=== PATIENT | male | born 1975 | race Caucasian/White ===

== ENCOUNTER 2021-04-22 11:29 | Outpatient (CLI) | payer OTHER, SELFPAY ==
--- NOTE | 2021-04-22 | DI.RAD_ITS ---
Exam(s) XR RIBS RT W PA LAT CHEST EXAM: XR RIBS RT W PA LAT CHEST CLINICAL HISTORY: RT SIDED RIB PAIN, R07.81 TECHNIQUE: 2D digital imaging was performed. COMPARISON: No exams were available for comparison FINDINGS: . There are nonacute appearing rib fractures in the upper left rib cage. With respect of the right rib cage, there is cortical irregularity of the 8th rib which has the appearance of a healed fracture site. There are no fractures of the 12th rib (which is apparently set of tenderness). No fractures of the 10th and 11th ribs evident. No obvious rib fractures higher up. No rib lesion seen. No lung contusion or pneumothorax. There is no pleural effusion evident. Heart size is normal and there is no significant mediastinal widening. IMPRESSION: 1. No acute right rib fractures evident. Nonacute appearing fractures evident the left rib and 2nd r ibs.. 2. No acute lung nor pleural abnormality evident. No pneumothorax. DATA REPOSITORY: RADIATION DOSE DELIVERED:
== END 2021-04-22 11:49 ==
PROVIDERS: Visit Provider Physician Assistant Medical
DX: R07.81 Pleurodynia (principal)
CPT/HCPCS: 71046; 71100

== ENCOUNTER 2021-09-16 12:36 | Outpatient (REF) | payer SELFPAY ==
[2021-09-16 14:44] LABS: Abs Immature Grans 0.03 10^3/uL (0.0-0.06); Absolute Basophil Count 0.08 10^3/uL (0.0-0.2); Absolute Eosinophil Count 0.23 10^3/uL (0.0-0.7); Absolute Lymphocyte Count 1.48 10^3/uL (1.2-3.4); Absolute Monocyte Count 0.64 10^3/uL (0.1-0.8); Absolute Neutrophil Count 4.05 10^3/uL (1.2-6.7); Basophils % 1.2; Eosinophils % 3.5; HCT 49.7 % (40.0-50.0); HGB 17.1 g/dL (13.5-17.5); Immature Grans % 0.5; Lymphocytes % 22.7; MCH 36.7 pg (27.0-33.0); MCHC 34.4 % (32.0-36.0); MCV 106.7 fL (80-95); MPV 11.1 fL (8.0-11.0); Monocytes % 9.8; Neutrophils % 62.3; Nucleated RBC 0 %; Platelet Count 134 10^3/uL (130-400); RBC 4.66 10^6/uL (4.36-5.78); RDW-SD 51.8 fL; WBC 6.51 10^3/uL (4.4-10.8)
[2021-09-16 14:57] LABS: ALT 55 U/L (16-63); AST 49 U/L (15-37); Albumin 3.9 g/dL (3.4-5.0); Alkaline Phosphatase 76 U/L (46-116); Anion Gap 9.5 mmol/L (3-11); BUN 7 mg/dL (7-18); Bilirubin, Total 0.9 mg/dL (0.2-1.0); CO2 25.5 mmol/L (21.0-32.0); CREATININE 0.8 mg/dL (0.70-1.30); Calcium 9.1 mg/dL (8.5-10.1); Chloride 102 mmol/L (98-107); Glucose 108 mg/dL (74-106); Potassium 4.3 mmol/L (3.5-5.1); Sodium 137 mmol/L (136-145)
[2021-09-16 15:06] LABS: Diff Comment RBC Morph Reviewed; Macrocytosis 2+; Polychromasia Present
== END 2021-09-16 12:37 | disposition home or self-care (01) ==
LOC: NCHCN 12:36
PROVIDERS: Visit Provider Nurse Practitioner Family
DX: Z85.71 Personal history of Hodgkin lymphoma (principal)
CPT/HCPCS: 80053; 85025

== ENCOUNTER 2025-07-02 11:20 | Outpatient (REF) | payer MEDICAID, SELFPAY ==
[2025-07-02 14:56] LABS: Abs Immature Grans 0.02 10^3/uL (0.0-0.06); HCT 46.5 % (40.0-50.0); HGB 16.5 g/dL (13.5-17.5); Immature Grans % 0.3 %; MCH 36.7 pg (27.0-33.0); MCHC 35.5 % (32.0-36.0); MCV 103 fL (80-95); MPV 10.9 fL (8.0-11.0); Platelet Count 165 10^3/uL (130-400); RBC 4.50 10^6/uL (4.36-5.78); RDW 11.9 % (11.8-14.1); RDW-SD 45.5 fL; WBC 6.63 10^3/uL (4.4-10.8)
[2025-07-02 15:15] LABS: ALT 74 U/L (16-63); AST 65 U/L (15-37); Albumin 4.1 g/dL (3.4-5.0); Alkaline Phosphatase 96 U/L (46-116); Anion Gap 11.2 mmol/L (3-11); BUN 8 mg/dL (7-18); Bilirubin, Total 0.8 mg/dL (0.2-1.0); CO2 25.8 mmol/L (21.0-32.0); Calcium 9.1 mg/dL (8.5-10.1); Chloride 101 mmol/L (98-107); Estimated GFR 112.25 (mL/min/1.73m2); Glucose 94 mg/dL (74-106); Potassium 3.8 mmol/L (3.5-5.1); Sodium 138 mmol/L (136-145); Total Protein 7.4 g/dL (6.4-8.2)
== END 2025-07-02 11:21 | disposition home or self-care (01) ==
LOC: NCHCN 11:20
PROVIDERS: Visit Provider Family Medicine
DX: Z85.71 Personal history of Hodgkin lymphoma (principal); E78.5 Hyperlipidemia, unspecified
CPT/HCPCS: 80053; 85025

== ENCOUNTER 2025-08-11 13:29 | Outpatient (REF) | payer MEDICAID, SELFPAY ==
[2025-08-11 15:46] LABS: ALT 66 U/L (16-63); AST 53 U/L (15-37); Albumin 4.0 g/dL (3.4-5.0); Alkaline Phosphatase 84 U/L (46-116); Anion Gap 10.7 mmol/L (3-11); BUN 12 mg/dL (7-18); Bilirubin, Total 0.5 mg/dL (0.2-1.0); CO2 25.3 mmol/L (21.0-32.0); Calcium 9.0 mg/dL (8.5-10.1); Chloride 102 mmol/L (98-107); Ferritin 507 ng/mL (26-388); Glucose 91 mg/dL (74-106); Potassium 4.1 mmol/L (3.5-5.1); Sodium 138 mmol/L (136-145); TSH (W/Ref FT4) 2.96 uIU/mL (0.36-3.74); Total Protein 7.5 g/dL (6.4-8.2)
[2025-08-11 15:56] LABS: Iron 120 ug/dL (65-175); Total Iron Binding Capacity 346 ug/dL (250-450)
[2025-08-12 01:35] LABS: HBs Antibody, Quant <3.1 mIU/mL (See Note); Hepatitis B Surface Antigen Negative (Negative); Hepatitis C Ab w Rflx HCV PCR Negative (Negative)
[2025-08-15 15:50] LABS: 1,25-Dihydroxyvitamin D 46 pg/mL (18-64)
== END 2025-08-11 13:30 | disposition home or self-care (01) ==
LOC: NCHCN 13:29
PROVIDERS: Visit Provider Family Medicine
DX: R74.8 Abnormal levels of other serum enzymes (principal); K76.0 Fatty (change of) liver, not elsewhere classified
CPT/HCPCS: 80053; 86704; 86706; 86803; 87340; 82652; 82728; 83540; 83550; 84443